=== PATIENT | female | born 1940 | race Caucasian/White ===

== ENCOUNTER 2024-03-14 10:29 | Day surgery (SDC) | payer MEDICARE, MEDICAID ==
[2024-03-14] VITALS (11 sets, daily range): BP systolic 136–151; BP diastolic 51–87; PULSE 67–78; RESP 12–17; TEMP 97.8; O2SAT 95–97
[~2024-03-14] VITALS: Ht 157.5 cm; Wt 61.4 kg
[2024-03-14 11:12] LABS: BASOPHILS % (AUTO) 0.1 % (0-1); EOSINOPHILS % (AUTO) 0 % (0-6); HEMATOCRIT 38.8 % (35.0-45.0); HEMOGLOBIN 12.9 g/dl (12.0-16.0); LYMPHOCYTES # (AUTO) 0.6 X10'3 (1.1-4.8); LYMPHOCYTES % (AUTO) 4.2 % (21-51); MEAN CORPUSCULAR HEMOGLOBIN 29.8 PG (27.0-31.0); MEAN CORPUSCULAR HGB CONC 33.1 g/dL (33.0-36.5); MEAN CORPUSCULAR VOLUME 90.2 FL (78-98); MEAN PLATELET VOLUME 7.4 FL (7.4-10.4); MONOCYTES # (AUTO) 0.2 X10'3 (0-0.9); MONOCYTES % (AUTO) 1.1 % (2-12); NEUTROPHILS # (AUTO) 13.9 X10'3 (1.8-7.7); NEUTROPHILS % (AUTO) 94.6 % (42-75); PLATELET COUNT 400 X10'3 (140-440); RED BLOOD COUNT 4.31 X10'6 (4.20-5.60); RED CELL DISTRIBUTION WIDTH 13.7 % (11.5-14.5); WHITE BLOOD COUNT 14.7 X10'3 (4.5-11.0)
[2024-03-14] MEDS ORDERED: POTA-192 PO (11:12)
[2024-03-14] MEDS ORDERED: MAGN250C (11:12)
[2024-03-14] MEDS ORDERED: ASPI-1265 PO (11:12)
[2024-03-14] MEDS ORDERED: CLOP75TA34 PO (11:12)
[2024-03-14] MEDS ORDERED: LEVO88TA7 PO (11:12)
[2024-03-14] MEDS ORDERED: NITR0.4T48 (11:12)
[2024-03-14] MEDS ORDERED: AMLO5TAB16 PO (11:12)
[2024-03-14] MEDS ORDERED: OMEP20CA16 PO (11:12)
[2024-03-14] MEDS ORDERED: ISOS5TAB3 PO (11:12)
[2024-03-14] MEDS ORDERED: SIMV-42 PO (11:12)
[2024-03-14] MEDS ORDERED: OLME5TAB29 PO (11:12)
[2024-03-14] MEDS: LORazepam 0.5 MG tablet PO PRN (11:25)
[2024-03-14] MEDS: diphenhydrAMINE 25mg capsule PO PRN (11:25)
[2024-03-14] MEDS: normal saline 1,000 ML IV SCH (11:26)
[2024-03-14 11:28] LABS: ANION GAP 11 (8-16); APTT 26 SECONDS (22-32); BLOOD UREA NITROGEN 20 MG/DL (7-18); BUN/CREATININE RATIO 15.2 (10.0-20.0); CALCIUM 9.9 MG/DL (8.5-10.1); CHLORIDE 100 MMOL/L (99-107); CHOLESTEROL 185 MG/DL (0-200); CREATININE 1.32 MG/DL (0.40-0.90); GLUCOSE 127 MG/DL (70-104); HDL CHOLESTEROL 93 MG/DL (35-60); LDL CHOLESTEROL 82 MG/DL (50-100); POTASSIUM 3.4 MMOL/L (3.5-5.1); PROTHROMBIN TIME 10.5 SECONDS (9.0-12.0); SODIUM 134 MMOL/L (135-145); TOTAL CARBON DIOXIDE 22.9 MMOL/L (24-32); TRIGLYCERIDES 52 MG/DL (20-135); eCRCL 25 ML/MIN; eGFR 38 ML/MIN
[2024-03-14] MEDS ORDERED: fentaNYL/PF 50MCG/1 ML 2ML syringe ONE (12:29)
[2024-03-14] MEDS ORDERED: midazolam 1 mg/ML 2ml injection ONE (12:29)
[2024-03-14] MEDS ORDERED: verapamil 2.5 mg/ml inj IV ONE (12:29)
[2024-03-14] MEDS ORDERED: heparin 1,000unit/ml 10ml vial 10 ML ONE (12:29)
[2024-03-14] MEDS ORDERED: LIDOcaine 1% (10mg/ml) 2ml vial ONE (12:29)
[2024-03-14] MEDS ORDERED: nitroGLYCERIN 500mcg/5mL D5W 5 ML IV ONE (12:30)
[2024-03-14] MEDS ORDERED: iohexol 350MG/ML 100ml bottle IV ONE (12:30)
[2024-03-14] MEDS ORDERED: LIDOcaine 1% 30ml preserv. free vial ONE (14:50)
== END 2024-03-14 18:20 | disposition home or self-care (01) ==
LOC: SSTAY O 10:29
PROVIDERS: ATTEND Student in an Organized Health Care Education/Training Program
DX: R94.39 Abnormal result of other cardiovascular function study (principal); I10 Essential (primary) hypertension; E78.00 Pure hypercholesterolemia, unspecified; I25.119 Atherosclerotic heart disease of native coronary artery with unspecified angina pectoris; E03.9 Hypothyroidism, unspecified; K21.9 Gastro-esophageal reflux disease without esophagitis; Z79.82 Long term (current) use of aspirin; Z79.890 Hormone replacement therapy; Z79.899 Other long term (current) drug therapy; Z91.013 Allergy to seafood; Z91.041 Radiographic dye allergy status
CPT/HCPCS: 36415; 80048; 80061; 85025; 85610; 85730; 93005; 93458; 99152; 99153; J1644; J2250; J3010; J3490; J7030; Q0163; Q9967; A6258; A6402; A6449; C1760; C1894

== ENCOUNTER 2024-07-24 08:55 | Outpatient (CLI) | payer MEDICARE, MEDICAID ==
[~2024-07-24 08:55] MED LIST: AMLO5TAB16 PO; ASPI-1265 PO; CLOP75TA34 PO; ISOS5TAB3 PO; LEVO88TA7 PO; MAGN250C; NITR0.4T48; OLME5TAB29 PO; OMEP20CA16 PO; POTA-192 PO; SIMV-42 PO
[2024-07-24 09:36] LABS: ANION GAP 9 (8-16); BLOOD UREA NITROGEN 16 MG/DL (7-18); BUN/CREATININE RATIO 11.3 (10.0-20.0); CALCIUM 9.9 MG/DL (8.5-10.1); CHLORIDE 95 MMOL/L (99-107); CREATININE 1.42 MG/DL (0.40-0.90); GLUCOSE 123 MG/DL (70-104); POTASSIUM 4.5 MMOL/L (3.5-5.1); SODIUM 130 MMOL/L (135-145); TOTAL CARBON DIOXIDE 25.9 MMOL/L (24-32); eGFR 35 ML/MIN
[2024-07-24] MEDS ORDERED: iohexol 350MG/ML 100ml bottle IV ONE (10:04)
== END 2024-07-24 23:59 | disposition home or self-care (01) ==
LOC: RAD 08:55
PROVIDERS: ATTEND Internal Medicine Interventional Cardiology
DX: I65.23 Occlusion and stenosis of bilateral carotid arteries (principal)
CPT/HCPCS: 36415; 70498; 80048; Q9967

== ENCOUNTER 2025-04-10 12:07 | Outpatient (CLI) | payer MEDICARE, MEDICAID ==
[~2025-04-10 12:07] MED LIST changes: +DIPH25TA27 PO; -MAGN250C; +MAGN250C PO; -NITR0.4T48; +PRED20TA
[2025-04-10 12:56] LABS: ALBUMIN 3.9 G/DL (3.4-5.0); ANION GAP 11 (8-16); BLOOD UREA NITROGEN 14 MG/DL (7-18); BUN/CREATININE RATIO 10.6 (10.0-20.0); CALCIUM 9.6 MG/DL (8.5-10.1); CHLORIDE 96 MMOL/L (99-107); CREATININE 1.32 MG/DL (0.40-0.90); GLUCOSE 95 MG/DL (70-104); POTASSIUM 4.5 MMOL/L (3.5-5.1); SODIUM 133 MMOL/L (135-145); TOTAL CARBON DIOXIDE 25.7 MMOL/L (24-32); eGFR 38 ML/MIN
[2025-04-10] MEDS ORDERED: iohexol 350MG/ML 100ml bottle IV ONE (13:07)
--- NOTE | 2025-04-10 14:53 | RADIOLOGY REPORT ---
EXAM: CT CTA CAROTIDS/VERTEBRALS HISTORY: OCCLUSION,STENOSIS OF BILATERAL CAROTID ARTERIES COMPARISON: CT CTA CAROTIDS/VERTEBRALS on DOS: 07/24/24 TECHNIQUE: High-resolution helical CT images of the neck were performed using 100 mL Omnipaque 300 IV contrast w ith CTA protocol. Sagittal and coronal reformatted images were obtained. 3-D reconstructions were u tilized. This CT exam was performed using one or more of the following dose reduction techniques: Au tomated exposure control, adjustment of the mA and/or kV according to patient size, or use of iterati ve reconstruction technique. FINDINGS: Right carotid system: There is 50% stenosis of the CCA (image 50, series 2). There are thick athero sclerotic calcifications of the carotid bulb with near complete occlusion of the ICA origin and near complete occlusion of the ECA origin. The mid to distal portions of the cervical ICA are widely paten t. Left carotid system: There are postoperative changes of left carotid endarterectomy. The CCA and ICA are widely patent. There is mild narrowing of the ECA origin. Vertebrobasilar: The bilateral vertebral arteries and basilar artery are patent. The right vertebral artery is dominant. 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 There are multiple dental caries. There is moderate to severe cervical degenerative disc disease and facet arth ropathy with mild spinal canal stenosis at C5-C6 and multilevel significant neural foraminal stenosis bilaterally. There is emphysema of the lung apices. There are postoperative changes of bilateral cat aract extraction surgery. There are advanced degenerative changes of the bilateral temporomandibular joints. There is mild mucosal thickening of the bilateral maxillary sinuses and dependent fluid in t he left sphenoid sinus. There is fluid in the bilateral mastoid air cells, greater on the right. IMPRESSION: 1. 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 2. Postoperative changes of left carotid endarterectomy. No significant stenosis is identified about the left carotid system. 3. 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 4. Emphysema. 5. Multiple dental caries. Recommend outpatient dental consultation. 6. Mild paranasal sinus disease. 7. Fluid density in the bilateral mastoid air cells may be due to sterile fluid or mastoiditis. 8. Moderate to severe cervical degenerative disc disease and facet arthropathy and advanced degenerat breana changes of the bilateral temporomandibular joints.
== END 2025-04-10 23:59 | disposition home or self-care (01) ==
LOC: RAD 12:07
PROVIDERS: ATTEND Surgery Vascular Surgery
DX: I65.23 Occlusion and stenosis of bilateral carotid arteries (principal); K02.9 Dental caries, unspecified; J32.4 Chronic pansinusitis; M26.643 Arthritis of bilateral temporomandibular joint; M51.369 Other intervertebral disc degeneration, lumbar region without mention of lumbar back pain or lower extremity pain
CPT/HCPCS: 36415; 70498; 80048; Q9967